=== PATIENT | female | born 1940 | race Caucasian/White ===

== ENCOUNTER 2017-06-01 09:03 | Emergency (ER) | payer OTHER ==
[~2017-06-01] VITALS: Ht 154.9 cm; Wt 63.5 kg
[2017-06-01] MEDS ORDERED: MICARDIS80 MG (09:30)
[2017-06-01] MEDS ORDERED: CARDIZEM CD180 M1 (09:30)
[2017-06-01] MEDS ORDERED: SYNTHROID75 MCG (09:30)
== END 2017-06-01 14:12 | disposition home or self-care (01) ==
LOC: ER 09:03
DX: R19.7 Diarrhea, unspecified (principal)